=== PATIENT | male | born 1945 | race Caucasian/White ===

== ENCOUNTER → 2017-06-24 09:55 | Outpatient (CLI) | payer OTHER, SELFPAY ==
--- NOTE | 2017-06-24 10:01 | NM_ITS ---
CLINICAL: Male, 71 years old. History of prostate cancer. WHOLE BODY NUCLEAR BONE SCAN TECHNIQUE: Following the IV administration of 26 mCi of Tc MDP, whole body bone imaging was performed with a gamma camera following a three hour delay. FINDINGS: Intense radiopharmaceutical uptake is seen in the region of the left femoral neck and intertrochanteric region as well as the left inferior pubic ramus and acetabular region of the left pelvis. Metastatic disease should be ruled out. Low-level uptake is seen in the region of the right knee joint suggestive of degenerative changes as well as both ankles. NM/Bone Scan Whole Body IMPRESSION: Increased uptake in the left hemipelvis as described as well as a proximal left femur as described. Metastatic disease should be ruled out. Correlation with the plain radiographs is recommended. Electronically Signed: Pasquale Martines MD at 14:55 EDT Tel [phone], Service support ,
--- NOTE | 2017-06-24 14:09 | RAD_ITS ---
STUDY: X-RAY - PELVIS AND LEFT HIP REASON FOR EXAM: Male, 71 years old. Prostate cancer. Abnormal bone scan. TECHNIQUE: Radiological exam, hip, unilateral, with pelvis when performed; 2 or 3 views. COMPARISON: None. FINDINGS: There is a non-specific bowel gas pattern. Normal visualized soft tissue structures. There is narrowing with cortical sclerosis and osteophyte formation of the sacroiliac joint consistent with degenerative osteoarthritic changes. Normal bilateral superior and inferior pubic rami. There are degenerative changes of the pubic symphysis with articular narrowing and sclerosis. Normal bilateral ischial tuberosities. Normal visualized femoral head. Normal acetabulum. There is mild articular joint space narrowing of the hip. RAD/Hip 2-3 Views with Pelvis IMPRESSION: Degenerative changes. Electronically Signed: Pasquale Martines MD at 14:38 EDT Tel [phone], Service support ,
== END ==
PROVIDERS: Family Provider Family Medicine; PCP Family Medicine; Visit Provider Nurse Practitioner Adult Health
DX: C61 Malignant neoplasm of prostate (principal)
CPT/HCPCS: 73502; 78306

== ENCOUNTER → 2017-06-30 07:47 | Outpatient (CLI) | payer OTHER, SELFPAY ==
--- NOTE | 2017-06-30 07:51 | CT_ITS ---
STUDY: CT ABDOMEN AND PELVIS WITH CONTRAST REASON FOR EXAM: Male, 71 years old. Newly diagnosed prostate cancer. RADIATION DOSAGE (If Supplied By Facility): CTDIvol = ( 16.31 ) mGy, DLP = ( 1462.47 ) mGycm TECHNIQUE: Transaxial images were obtained from the dome of the diaphragm to the symphysis pubis without oral contrast. 100CC ml of Isovue 300 contrast was administered. Sagittal and coronal images were reconstructed. Delayed imaging was obtained as well. Individualized dose optimization techniques were used for this CT. COMPARISON: None. FINDINGS: Minimal increased markings in the lingular segment of the left upper lobe as well as at the left lung base suggestive of atelectasis and/or scarring. Calcified granuloma in the right lower lobe. Coronary artery calcification. There is decreased attenuation of the liver consistent with steatosis. Normal gallbladder and extrahepatic biliary system. Normal spleen. Normal pancreas. Normal bilateral adrenal glands. There is a 9.4 mm cyst in the upper pole of the right kidney. Normal left kidney. Normal visualized stomach. Normal small intestine. Normal colon. The appendix is visualized and appears normal. Normal abdominal aorta. Normal inferior vena cava. Normal retroperitoneum. There is a 1.9 cm x 2 cm soft tissue nodule in the left side of the base of the urinary bladder. There is also evidence of diffuse bladder wall thickening. Inhomogeneous enlargement of the prostate. The prostate measures 5.5 cm by 5.7 cm. This causes indentation of the bladder base. There is a 4.5 cm x 3.2 cm soft tissue mass along the left pelvic wall. This may represent adenopathy. Small bilateral inguinal hernias containing fat worse on the right side. There are degenerative changes of the visualized lumbar spine. CT/Abdomen/Pelvis WITH Contrast IMPRESSION: Fatty infiltration of liver. Inhomogeneously enhanced prostate with indentation of the bladder base. 1.9 cm x 2 cm rounded soft tissue nodule in the left-sided base of the urinary bladder. Clinical correlation recommended. 4.5 cm x 3.2 cm soft tissue mass in the left pelvic sidewall. This most likely represents adenopathy. Electronically Signed: Pasquale Martines MD at 13:23 EDT Tel [phone], Service support ,
[2017-06-30 08:16] LABS: CREATININE FINGERSTICK 0.9 mg/dL (0.70-1.30)
== END ==
PROVIDERS: Family Provider Family Medicine; PCP Family Medicine; Visit Provider Nurse Practitioner Adult Health
DX: C61 Malignant neoplasm of prostate (principal)
CPT/HCPCS: 74177; Q9967

== ENCOUNTER → 2018-04-19 16:57 | Outpatient (CLI) | payer SELFPAY ==
--- NOTE | 2018-04-19 17:00 | CT_ITS ---
STUDY: CT ABDOMEN AND PELVIS WITH CONTRAST REASON FOR EXAM: Male, 72 years old. Prostate cancer. Follow-up. History of appendectomy, hernia and elevated PSA. RADIATION DOSAGE (If Supplied By Facility): CTDIvol = ( 13.58 ) mGy, DLP = ( 1319.60 ) mGycm TECHNIQUE: Transaxial images were obtained from the dome of the diaphragm to the symphysis pubis without oral contrast. Isovue 300 100 IV was administered. Sagittal and coronal images were reconstructed. Individualized dose optimization techniques were used for this CT. COMPARISON: 06/30/2017. FINDINGS: Calcified granulomas in the posterior lung bases. The visualized portions of the heart are within normal limits. Normal liver. Normal gallbladder and extrahepatic biliary system. Normal spleen. Normal pancreas. Normal bilateral adrenal glands. Right kidney: Small nonenhancing hypodense cysts. No stones or hydronephrosis. Left kidney: Small nonenhancing hypodense cyst. No stones or hydronephrosis. Normal visualized stomach. Normal small intestine. Normal colon. Postsurgical absence of the appendix. Normal abdominal aorta. Normal inferior vena cava. Normal retroperitoneum. Thickening of the urinary bladder wall. Irregular enlargement of the central lobe of the prostate gland protruding and indenting the posterior bladder wall. This is unchanged. 1.9 x 1.6 cm hypodensity at the site of right inguinal hernia surgery of the herniating mesenteric fat. This is most likely postoperative seroma (series 601, images 42-44; series 2, images 82-87). No acute osseous abnormality. CT/Abdomen/Pelvis WITH Contrast IMPRESSION: 1. Irregular enlargement of the central lobe the prostate gland protrudes into the posterior bladder wall. This is unchanged. 2. Small nonenhancing hypodense cysts in the right kidney and small nonenhancing hypodense cyst in the left kidney are unchanged. 3. Interval resection of the mesenteric fat herniating in the right inguinal region. This area is replaced by a 1.9 x 1.6 cm hypodensity which may represent postop seroma. 4. Thickening of the bladder wall is unchanged. This is most likely from chronic bladder outlet obstruction. 5. No significant interval changes when compared to 06/30/2017. Electronically Signed: Cristopher Larson MD at 11:11 EDT , Service support ,
[2018-04-19 17:31] LABS: CREATININE FINGERSTICK 0.7 mg/dL (0.70-1.30); EGFR FINGERSTICK > 60.0000 mL/min (>60)
== END ==
PROVIDERS: Family Provider Family Medicine; PCP Family Medicine; Referring Provider Nurse Practitioner Adult Health; Visit Provider Nurse Practitioner Adult Health
DX: C61 Malignant neoplasm of prostate (principal)
CPT/HCPCS: 74177; Q9967

== ENCOUNTER → 2018-04-25 08:58 | Outpatient (CLI) | payer OTHER, SELFPAY ==
--- NOTE | 2018-04-25 09:02 | NM_ITS ---
CLINICAL: 72-year-old male with reported history of carcinoma of the prostate. WHOLE BODY 99m Tc MDP RADIONUCLIDE BONE SCINTIGRAPHY COMPARISON: Previous whole body bone scintigraphy study dated 06/24/2017 FINDINGS: Following the intravenous administration of 26.0 mCi of 99m Tc MDP, whole body bone images reveal: 1. Increased radiopharmaceutical concentration remains apparent in the left acetabulum, left proximal femur, the left inferior pubic ramus, the right inferior pubic ramus with extension into the left posterior ilium, the bilateral sacral ala, coccyx and presumably iliac wing. 2. Facilitated uptake is redefined in the acromioclavicular and sternoclavicular compartments of both shoulders, lower cervical spine posteriorly on the right, bilateral knees, both ankle articulations, the right elbow. 3. The remaining skeletal structures are scintigraphically unremarkable with normal-appearing renal images and urinary bladder activity identified. NM/Bone Scan Whole Body IMPRESSION: 1. The increase in radiopharmaceutical concentration both redefine a newly apparent in the bilateral hemipelvis and left proximal femur is commensurate with apparent skeletal metastatic disease. 2. Degenerative arthritis appears expressed in the bilateral shoulders, cervical spine, right and left knees, ankles bilaterally and right elbow. 3. Overall compared to the previous whole body bone scintigraphy study dated 06/24/2017, there is continued demonstration of skeletal metastatic disease with an increase in axial skeletal involvement as described above. Electronically Signed: Misael Nation DO at 10:00 EDT Tel , Service support ,
== END ==
PROVIDERS: Family Provider Family Medicine; PCP Family Medicine; Referring Provider Nurse Practitioner Adult Health; Visit Provider Nurse Practitioner Adult Health
DX: C61 Malignant neoplasm of prostate (principal)
CPT/HCPCS: 78306

== ENCOUNTER → 2018-09-02 | Outpatient (CLI) | payer OTHER, SELFPAY ==
[2018-09-01 15:50] VITALS: BMI 24.8
--- NOTE | 2018-09-02 14:36 | CT_ITS ---
HISTORY: PROSTATE CA STAGING TECHNIQUE: Helically acquired images were obtained of the chest following IV contrast with multiplanar reformats. A radiation dose optimization technique was used for this scan. IV Contrast dosage and agent: 100 cc Isovue-300 administered intravenously. COMPARISON: No prior chest imaging. FINDINGS: # of images incl. paperwork: [id number] PULMONARY ARTERIES: No pulmonary embolus. Mild dilation of the bilateral hilar and lobar pulmonary arteries. AORTA AND GREAT VESSELS: Normal in caliber. No evidence of dissection. PowerPort left chest, catheter tip distal SVC. HEART AND PERICARDIUM: Heart size normal. No pericardial effusion. No signs of right heart strain. Coronary artery atherosclerosis. MEDIASTINUM AND TREVON: Mild paratracheal, AP window, and subcarinal lymph nodes. Reference a pretracheal lymph node just above the richelle, 2.3 x 1.7 cm diameter. Several adjacent calcified mediastinal and bilateral hilar lymph nodes. Esophagus unremarkable. OTHER SOFT TISSUES: Chest wall unremarkable. No axillary or supraclavicular adenopathy. LUNGS AND LARGE AIRWAYS, PLEURA: Numerous subcentimeter nodules are scattered throughout all lobes of both lungs. Several calcified granulomas are also present. No consolidation or pulmonary edema. No pneumothorax. No pleural effusion. BONES: No acute osseous abnormality. UPPER ABDOMEN: No acute findings. Incidental small cyst right kidney. CT/Chest WITH Contrast IMPRESSION: Mild mediastinal lymphadenopathy. Metastatic disease is possible although this might also be explained by the granulomatous process evidenced by several calcified lymph nodes. Similarly, there are several very small nodules scattered throughout all lobes of both lungs. The appearance is most suggestive of post inflammatory/post infectious nodules given the presence of several calcified granulomas. Metastatic disease less likely but possible. Prominent in caliber pulmonary arteries suggestive of pulmonary artery hypertension. Individualized dose optimization techniques were used for this CT. at 2253 Reported and signed by: Zion Velazquez MD Electronically Signed: Zion Velazquez, at 22:52 EDT Tel , Service support ,
--- NOTE | 2018-09-02 15:21 | CT_ITS ---
HISTORY: PROSTATE CA STAGING EXAMINATION: TECHNIQUE: Helically acquired images were obtained of the abdomen and pelvis following IV contrast. A radiation dose optimization technique was used for this scan. IV Contrast dosage and agent: 100 Isovue 300 Oral contrast: Oral contrast was administered. COMPARISON: 06/19/18 and 06/30/17 CT abdomen and pelvis. FINDINGS: LOWER CHEST: Compared to 06/30/17, there has been increase in size and number of nodules in the lung bases, please see CT chest report. LIVER: Homogeneous. No focal mass. GALLBLADDER AND BILIARY TREE: No calcified gallstones. No pericholecystic edema. No intra- or extrahepatic biliary ductal dilation. KIDNEYS AND URETERS: Normal renal size and position. No hydronephrosis. Incidental small renal cysts, right greater than left. ADRENAL GLANDS: Non-enlarged. SPLEEN: Normal size, no mass. PANCREAS: No pancreatic inflammation or mass. BOWEL: Appendix not identified; no evidence of apendicitis.. No obstruction or inflammation of the bowel. LYMPH NODES: Left pelvic sidewall/external iliac lymphadenopathy has worsened, reference note coronal image 53 3.0 x 2.2 cm increased from 2.2 x 2.0 cm on 04/19/2008. Smaller adjacent lymph nodes are also more prominent. PERITONEUM: No ascites or free air. No other fluid collection. VESSELS: No abdominal aortic aneurysm. URINARY BLADDER: Wall thickening similar to prior. REPRODUCTIVE ORGANS: Irregular, enlarged prostate gland similar to prior. ABDOMINAL WALL: No concerning findings. BONES: Destructive sclerotic lesion involving the left proximal femur, and left hemipelvis, with extra osseous destruction and periosteal reaction along the left pelvic sidewall, progressed compared to previous. Sclerotic lesions in the right proximal femur are more prominent compared to previous. CT/Abdomen/Pelvis WITH Contrast IMPRESSION: Interval progression of osseous metastatic disease particularly in the left proximal femur and left pelvic bones. The left proximal femoral disease might place the patient at increased risk of hip fracture. Interval progression of left pelvic sidewall/external iliac adenopathy. Interval increase in size and number of pulmonary nodules partially visible, concerning for pulmonary metastatic disease. Please see CT chest report. Enlarged irregular prostate gland with urinary bladder wall thickening otherwise similar to previous. Individualized dose optimization techniques were used for this CT. at 2311 Reported and signed by: Zion Velazquez MD Electronically Signed: Zion Velazquez, at 23:10 EDT Tel , Service support ,
== END | disposition home or self-care (01) ==
DX: C61 Malignant neoplasm of prostate (principal)
CPT/HCPCS: 71260; 74177; Q9967